=== PATIENT | male | born 1965 | race Caucasian/White ===

== ENCOUNTER 2017-09-27 13:27 | Emergency (ER) | payer OTHER, SELFPAY ==
[2017-09-27 13:28] VITALS: BP 137/97; PULSE 93; RESP 16; TEMP 37; O2SAT 95; BMI 38.8
[2017-09-27 13:32] VITALS: O2SAT 96
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
[2017-09-27] MEDS: 0.9% Normal Saline 1,000 ML 150 ML IV (14:32)
[2017-09-27 14:35] LABS: Absolute Lymphocyte Count 1.46 X10^3/ul (0.83-4.51); Absolute Neutrophil Count 5.1 X10^3/uL (2.0-7.7); Basophil# 0.02 X10^3/uL; Basophil% 0.3 % (0-1); Eosinophil# 0.11 X10^3/uL; Eosinophils% 1.5 % (0-5); Hematocrit 46.3 % (40-54); Lymphocyte # 1.46 X10^3/ul (4.0); Lymphocyte % 19.7 % (19-41); Mean Corp Hgb Conc 34.6 g/gl (32-36); Mean Corpuscular Hgb 31.5 pg (27.0-32.0); Mean Corpuscular Volume 91.1 fL (80-94); Monocyte# 0.75 X10^3/uL; Monocyte% 10.1 % (0-10); Neutrophil # 5.08 X10^3/uL (2.7-7.7); Neutrophil % 68.3 % (47-70); Platelet Count 262 K/mm3 (150-450); RBC Distribution Width CV 12.4 % (11.6-14.6); RBC Distribution Width SD 41.1 fl (35.1-43.9); Red Blood Count 5.08 M/mm3 (4.6-6.2); White Blood Count 7.4 K/mm3 (4.4-11.0)
[2017-09-27 14:36] LABS: POSITIVE COUNT NO; POSITIVE DIFFERENTIAL NO; POSITIVE MORPHOLOGY NO
[2017-09-27 14:49] LABS: Anion Gap 7 (5-15); BUN 27 mg/dL (7-18); BUN/Creat Ratio 23.5 RATIO (10-20); Calcium,Total 8.8 mg/dL (8.5-10.1); Chloride 106 mmol/L (98-107); Creatinine, Serum 1.15 mg/dL (0.70-1.30); EST Glomerular Filtration Rate 71 mL/min (>60); Est Glom Filt Rate - Afr Amer 86 mL/min (>60); Estimated Creatinine Clearance 63.63 ml/min; Glucose 121 mg/dL (74-106); Potassium 4.4 mmol/L (3.5-5.1); Sodium Level 141 mmol/L (136-145)
[2017-09-27 14:59] LABS: Alcohol, Blood (Medical)-Serum < 3.0 mg/dL
[2017-09-27 15:05] VITALS: O2SAT 96
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
[2017-09-27 16:05] VITALS: BP 133/95; PULSE 89; RESP 16
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
== END 2017-09-27 16:31 | disposition home or self-care (01) ==
PROVIDERS: Emergency Provider Emergency Medicine; Family Provider Pediatrics; PCP Pediatrics
DX: S00.81XA Abrasion of other part of head, initial encounter (principal); S16.1XXA Strain of muscle, fascia and tendon at neck level, initial encounter; S60.512A Abrasion of left hand, initial encounter; S60.511A Abrasion of right hand, initial encounter; S20.219A Contusion of unspecified front wall of thorax, initial encounter; S40.021A Contusion of right upper arm, initial encounter; M54.5 Low back pain; R16.0 Hepatomegaly, not elsewhere classified; I10 Essential (primary) hypertension; V89.2XXA Person injured in unspecified motor-vehicle accident, traffic, initial encounter; Y93.9 Activity, unspecified; Y92.9 Unspecified place or not applicable; Z79.899 Other long term (current) drug therapy; Z72.0 Tobacco use
CPT/HCPCS: 70450; 71260; 72125; 73060; 74177; 80048; 80320; 85025; 96360; 96361; 99285; J7030; Q9967; A4216; G0480

== ENCOUNTER 2022-03-18 09:24 | Emergency (ER) | payer BC, SELFPAY ==
[2022-03-18 09:26] VITALS: BP 141/99; PULSE 89; RESP 16; TEMP 36.7; O2SAT 96; BMI 33.3
--- NOTE | 2022-03-18 09:48 | ED.VIS.LOWEX ---
HPI History of Present Illness Chief Complaint: Lower Extremity Injury Informant: patient Onset/Context/Timing Onset: Yesterday Context: Gradual Onset Timing: Waxes and wanes Quality of Pain: Aching Current Severity: Mild Maximum Severity: Moderate Narrative Narrative: Patient presents secondary to left knee pain. States last evening he got up and walked to another room and back. After sitting down in his chair he start developing left knee pain. He now has increased pain with any movement or weightbearing. He does not believe he twisted his knee or injured in any way. He denies any history of knee problems. [facility] Medical History HTN (hypertension) Home Medications amlodipine 10 mg tablet 10 mg PO DAILY 04/12/17 [History Last Taken Unknown] lisinopril 20 mg tablet 20 mg PO DAILY 04/12/17 [History Last Taken Unknown] naproxen 500 mg tablet (Naprosyn) 500 mg PO BID PRN pain #20 tabs 03/18/22 [Rx Last Taken Unknown] Allergy/AdvReac Type Severity Reaction Status Date / Time No Known Allergies Allergy Verified 03/18/22 09:25 Social History Smoking Status: Current every day smoker tobacco type: cigarettes ROS ROS ED Constitutional Constitutional ED: Denies chills or fever(s) Eyes Eyes: Denies change in vision or discharge from eye(s) ENT ENT ED: Denies discharge from eye(s), rhinorrhea or sore throat Cardiovascular Cardiovascular: Denies chest pain or palpitations Respiratory/Chest Respiratory/Chest: Denies cough or dyspnea Gastrointestinal Gastrointestinal: Denies abdominal pain, diarrhea, nausea or vomiting Genitourinary Genitourinary ED: Denies dysuria Musculoskeletal Musculoskeletal: Reports extremity pain; Denies back pain Integumentary Denies Abrasions or rash Neurologic Neurologic: Denies headache(s), paresthesias or weakness Psychiatric Psychiatric: Denies anxiety or depression Allergic/Immunologic Allergic/Immunologic ED: Denies lip swelling or urticaria EXAM Physical Exam Const Vital Signs: 03/18/22 09:26 Temperature 98.1 F Temperature Source Temporal Pulse Rate 89 Respiratory Rate 16 Blood Pressure 141/99 H Blood Pressure Mean 113 Pulse Ox 96 Oxygen Delivery Method Room Air Positive well nourished and well developed General Appearance ED: well developed HEENT Reports normocephalic and head/scalp atraumatic Eyes PERRL and EOMs intact bilaterally Neck supple Chest Wall inspection of chest normal and palpation of chest normal Resp normal respiratory effort and clear to auscultation bilaterally Cardio regular rate and regular rhythm GI normal to inspection, nondistended, normoactive bowel sounds Palpation: soft Extremity Extremity Narrative: Mild left knee edema. Tenderness along the medial joint line. Ligaments are tight on testing. Good range of motion. Strong distal pulses. Neuro oriented x3 and no sensory deficits noted Sensorium / Orientation: alert Motor Exam: strength 5/5 throughout Psych mental status grossly normal Skin no rashes or lesions noted MDM MDM MDM Narrative Medical decision making narrative: Patient given naproxen here. Left knee x-rays obtained. Radiography Diagnostic Testing: Clinical Impression(s) from Imaging Studies Knee X-Ray 03/18/22 10:05 IMPRESSION: Moderate size joint effusion Electronically Signed: Roger Rome MD at 10:27 EDT Reading Location ID and State: [facility] / [place] , Service support , Treatment and Re-Evaluation Narrative: Left knee x-rays per my interpretation reveal no acute bony injury. Radiology interpretation is reviewed. He does have a moderate-sized joint effusion. Sage wrap is applied to the left knee to provide light compression. He will be discharged with a cane to help with ambulation. I will write him work restrictions. He is given a prescription for naproxen. He is referred to Dr. Irizarry, on-call for orthopedics for follow-up. Discharge Plan Triage Chief Complaint: Lower Extremity Injury ED Provider: Myra Kelly Dx/Rx/DC Orders Clinical Impression: Left knee sprain, Joint effusion Instructions: ED Knee Effusion, ED Knee Sprain Prescriptions: New naproxen [Naprosyn] 500 mg tablet 500 mg PO BID PRN (Reason: pain) Qty: 20 0RF No Action lisinopril 20 MG tablet 20 mg PO DAILY amlodipine 10 MG tablet 10 mg PO DAILY Stand Alone Forms: Work Status Form Primary Care Provider: Bob Collier Referrals: Bob Collier MD [Primary Care Provider] - Stephen Irizarry MD [Med Staff - Active Staff] - 1 Week if not improving Disposition Disposition: Home, Self Care
[2022-03-18] MEDS: Naproxen 500 MG Tablet PO (10:00)
--- NOTE | 2022-03-18 10:05 | RAD_ITS ---
STUDY: X-RAY - LEFT KNEE REASON FOR EXAM: Male, 56 years old. pt. states he stepped down on his leg and felt pain posterior knee, pain and swelling in that area TECHNIQUE: 4 view(s) of the knee. COMPARISON: None. FINDINGS: Normal visualized distal femur. Normal visualized proximal tibia and fibula. Normal proximal tibiofibular articulation. There is no demonstrated fracture. Normal medial femorotibial compartment. Normal lateral femorotibial compartment. Normal patellofemoral articulation. There is a moderate volume joint effusion. The soft tissue structures are unremarkable. RAD/Knee 4 or More Views IMPRESSION: Moderate size joint effusion Electronically Signed: Roger Rome MD at 10:27 EDT Reading Location ID and State: [facility] / [place] , Service support ,
== END 2022-03-18 10:51 | disposition home or self-care (01) ==
PROVIDERS: Emergency Provider Emergency Medicine; PCP Family Medicine; Visit Provider Emergency Medicine
DX: S83.92XA Sprain of unspecified site of left knee, initial encounter (principal); F17.210 Nicotine dependence, cigarettes, uncomplicated; I10 Essential (primary) hypertension; X58.XXXA Exposure to other specified factors, initial encounter; Z79.899 Other long term (current) drug therapy
CPT/HCPCS: 73564; 99284